=== PATIENT | female | born 1970 | race Caucasian/White ===

== ENCOUNTER 2020-04-29 21:49 | Emergency (ER) | payer BC ==
[~2020-04-29] VITALS: Ht 160 cm; Wt 54.9 kg
[2020-04-29 21:58] VITALS: Ht 160 cm; Wt 54.9 kg
[2020-04-29 23:45] VITALS: BP 153/96
== END 2020-04-29 23:45 | disposition home or self-care (01) ==
LOC: ED 21:49
DX: S01.511A Laceration without foreign body of lip, initial encounter (principal); I10 Essential (primary) hypertension; Z88.2 Allergy status to sulfonamides; W54.0XXA Bitten by dog, initial encounter; Y93.89 Activity, other specified; Y92.89 Other specified places as the place of occurrence of the external cause; Y99.8 Other external cause status
CPT/HCPCS: J2001